=== PATIENT | female | born 1945 | race Caucasian/White ===

== ENCOUNTER → 2021-06-27 | Outpatient (CLI) | payer MEDICARE | LOC: M.RAD 09:47 | PROVIDERS: ATTEND Internal Medicine | DX: J98.4 Other disorders of lung (principal); M25.78 Osteophyte, vertebrae; M25.712 Osteophyte, left shoulder; M25.711 Osteophyte, right shoulder; M19.011 Primary osteoarthritis, right shoulder; M19.012 Primary osteoarthritis, left shoulder ==

== ENCOUNTER → 2021-07-17 | Outpatient (CLI) | payer MEDICARE | LOC: M.CT 08:41 | PROVIDERS: ATTEND Internal Medicine | DX: R93.89 Abnormal findings on diagnostic imaging of other specified body structures (principal); I25.10 Atherosclerotic heart disease of native coronary artery without angina pectoris; Z87.891 Personal history of nicotine dependence ==